=== PATIENT | male | born 1960 | race Caucasian/White ===

== ENCOUNTER 2020-12-14 19:10 | Emergency (ER) | payer BC ==
--- NOTE | 2020-12-14 20:52 | CR ---
INDICATION: Pain after fall. COMPARISON: None available. FINDINGS: AP and lateral views of the left tibia and fibula were obtained. There is no sign of fracture, dislocation, or joint effusion. There is moderate prominence of the tibial tuberosity consistent with previous Edgar-Schlatter disease. There are moderate osteophytes of the anterior superior and inferior patella at the insertions of the quadriceps and patellar tendons. A rounded ossification inferior to the patella is probably from previous tendinous injury. At the ankle, there is moderate diffuse soft tissue swelling and mild medial angulation of the talus in relationship to the tibial plafond, suggesting lateral tendon injury. There is no definite ankle fracture. There are prominent plantar and posterior calcaneal spurs. No additional degenerative change is seen in the ankle. Ossifications are seen along the medial proximal fibular shaft from previous injury to the superior tibial-fibular syndesmosis. There is mild diffuse calf edema, with blurring of the fat planes throughout the calf. IMPRESSION: No sign of acute osseous injury. Mild medial tilting of the talus in relationship to the tibial plafond, suggesting lateral ligamentous injury at the ankle. Moderate diffuse soft tissue swelling at the ankle. Mild edema throughout the rest of the calf. Dictated by Manfred Argueta MD @ 12/14/2020 8:51:[address] Manfred Argueta @ Dec 14 2020 8:51PM
--- NOTE | 2020-12-14 21:06 | EDM.PDOC ---
ED HPI GENERAL MEDICAL PROBLEM - General Chief Complaint: Lower Extremity Injury/Pain Stated Complaint: LEG SWOLLEN AND BRUISED Time Seen by Provider: 12/14/20 20:00 Source of Information: Reports: Patient History Limitations: Reports: No Limitations - History of Present Illness INITIAL COMMENTS - FREE TEXT/NARRATIVE: HISTORY AND PHYSICAL: History of present illness: Patient is a 60 year old male who presents to the ED today with concern of left lower extremity injury that occurred yesterday. Patient states that he tripped over bricks that were laying on the ground when he was working and states that he hit the side of his leg on the bricks. Patient states that he has not had any issues since then but has had a large bruise over his left outer leg and was concerned that maybe he broke something. Patient denies any head injury or loss of consciousness or any other resuscitative symptoms. Patient states that he has been able to walk without difficulty. Patient denies fever, chills, chest pain, shortness of breath, or cough. Denies headache, neck stiff ness, change in vision, syncope, or near syncope. Denies nausea, vomiting, abdominal pain, diarrhea, constipation, or dysuria. Has not noted any blood in urine or stool. Patient has been eating and drinking appropriately. Review of systems: As per history of present illness and below otherwise all systems reviewed and negative. Past medical history: As per history of present illness and as reviewed below otherwise noncontributory. Surgical history: As per history of present illness and as reviewed below otherwise noncontributory. Social history: See social history for further information Family history: As per history of present illness and as reviewed below otherwise noncontributory. Physical exam: General: Patient is alert, oriented, and in no acute distress. Patient sitting comfortably on exam table. Vitals stable and reviewed by me. HEENT: Atraumatic, normocephalic, pupils equal and reactive bilaterally, negative for conjunctival pallor or scleral icterus, mucous membranes moist, TMs normal bilaterally, throat clear, neck supple, nontender, trachea midline. No drooling or trismus noted. No meningeal signs. No hot potato voice noted. Lungs: Clear to auscultation, breath sounds equal bilaterally, chest nontender. Heart: S1S2, regular rate and rhythm without overt murmur Abdomen: Soft, nondistended, nontender. Negative for masses or hepatosplenomegaly. Negative for costovertebral tenderness. Pelvis: Stable nontender. Genitourinary: Deferred. Rectal: Deferred. Skin: Intact, warm, dry. No lesions or rashes noted. Extremities: Patient has a hematoma noted to the lateral mid tib-fib area with ecchymosis surrounding the hematoma that spreads to the left ankle. The left an kle is moderately edematous. Patient has complete range of motion of the left lower extremity without pain or difficulty. All compartments are soft of the left lower extremity. Dorsalis pedis and posterior tibial pulses are grossly intact of the left lower extremity with capillary refill less than 2 seconds. Otherwise, atraumatic, negative for cords or calf pain. Neurovascular unremarkable. Neuro: Awake, alert, oriented. Cranial nerves II through XII unremarkable. Cerebellum unremarkable. Motor and sensory unremarkable throughout. Exam nonfocal. Notes: Signs and symptoms that were prompt return to the ED thoroughly discussed with patient. Discussed importance for follow-up with a primary care provider. Voices understanding and is agreeable to plan of care. Denies any further questions or concerns at this time. Diagnostics: Tib-fib, left Therapeutics: None Prescription: None Impression: Left lower extremity injury Hematoma of left lower extremity Plan: 1. Rest, ice, elevate the affected extremity. You can apply ice 15 minutes on, 15 minutes off. 2. Tylenol and/or Ibuprofen as directed for pain management or discomfort. 3. Follow up with the primary care provider as discussed. Return to the ED as needed and as discussed. Definitive disposition and diagnosis as appropriate pending reevaluation and review of above. Left Leg Pain Score (Numeric/FACES): 4 Review of Systems - Review of Systems Review Of Systems: Comprehensive ROS is negative, except as noted in HPI. ED EXAM, GENERAL - Physical Exam Exam: See Below (See dictation) Course - Vital Signs Last Recorded V/S: Last Vital Signs Temp 97.8 F 12/14/20 19:48 Pulse 96 12/14/20 19:48 Resp 18 12/14/20 19:48 BP 138/76 12/14/20 19:48 Pulse Ox Departure - Departure Time of Disposition: 21:04 Disposition: Home, Self-Care 01 Clinical Impression: Lower extremity injury Qualifiers: Encounter type: sequela Laterality: left Qualified Code(s): S89.92XS - Unspec ified injury of left lower leg, sequela Hematoma of leg Qualifiers: Encounter type: initial encounter Laterality: left Qualified Code(s): S80.12XA - Contusion of left lower leg, initial encounter - Discharge Information Referrals: PCP,None [Primary Care Provider] - Forms: ED Department Discharge Additional Instructions: The following information is given to patients seen in the emergency department who are being discharged to home. This information is to outline your options for follow-up care. We provide all patients seen in our emergency department with a follow-up referral. The need for follow-up, as well as the timing and circumstances, are variable depending upon the specifics of your emergency department visit. If you don't have a primary care physician on staff, we will provide you with a referral. We always advise you to contact your personal physician following an emergency department visit to inform them of the circumstance of the visit and for follow-up with them and/or the need for any referrals to a consulting specialist. The emergency department will also refer you to a specialist when appropriate. This referral assures that you have the opportunity for follow-up care with a specialist. All of these measure are taken in an effort to provide you with optimal care, which includes your follow-up. Under all circumstances we always encourage you to contact your private physician who remains a resource for coordinating your care. When calling for follow-up care, please make the office aware that this follow-up is from your recent emergency room visit. If for any reason you are refused follow-up, please contact the [facility] Emergency Department at and asked to speak to the emergency department charge nurse. [facility] [address] [place] [address] [id number] [address] [address] 1. Rest, ice, elevate the affected extremity. You can apply ice 15 minutes on, 15 minutes off. 2. Tylenol and/or Ibuprofen as directed for pain management or discomfort. 3. Follow up with the primary care provider as discussed. Return to the ED as needed and as discussed. Sepsis Event Note (ED) - Evaluation Sepsis Screening Result: No Definite Risk - Focused Exam Vital Signs: Vital Signs Temp Pulse Resp BP 12/14/20 19:48 97.8 F 96 18 138/76
== END 2020-12-14 21:20 | disposition home or self-care (01) ==
LOC: MW.ED 19:10
DX: S80.12XA Contusion of left lower leg, initial encounter (principal); W22.09XA Striking against other stationary object, initial encounter
CPT/HCPCS: 73590-26-LT; 73590-LT; 99283-25